=== PATIENT | male | born 1970 | race Caucasian/White ===

== ENCOUNTER 2025-08-12 09:04 | Outpatient (REF) | payer OTHER, SELFPAY ==
--- OUTSIDE RECORDS SUMMARY | 2025-08-12 09:46 | XMS_ITS | Clinical Summary ---
Author Organization [facility] Address [address] [place] [address] Phone Care Team Providers Care Nurses' Registry Director Name Role Phone Neville Merida NP Primary Care Provider [phone] Allergies Active Allergy Reactions Criticality Noted Date Comments Bee Venom Protein (Honey Bee) 2020 Medications methocarbamoL (ROBAXIN) 750 mg tablet Take 1 tablet (750 mg total) by mouth 4 (four) times a day. 20 each 08/30/2024 Active Active Problems No known active problems Encounters Date Type Department Care Team Description 06/02/2025 2:46 PM EDT - 06/02/2025 11:59 PM EDT Hospital Encounter [facility] MRI [address] [place] [address] Pain in right wrist Discharge Disposition: Home or Self Care from Last 3 Months Medical History Medical History Date Comments Asthma Social History Tobacco Use Types Packs/Day Years Used Date Smoking Tobacco: Never Smokeless Tobacco: Never Tobacco Cessation:Counseling Given: Not Answered Alcohol Use Standard Drinks/Week Comments Not Currently 0 (1 standard drink = 0.6 oz pur e alcohol) Sex and Gender Information Value Date Recorded Sex Assigned at Male 08/30/2024 4:13 PM EST Legal Sex Male 10:11 AM EST Gender Identity Male 08/30/2024 4:13 PM EST Sexual Orientation Straight 08/30/2024 4: 13 PM EST Obstetrics History Last Filed Vital Signs Vital Sign Reading Time Taken Comments Blood Pressure 124/87 05/02/2025 11:54 AM EDT Pulse 87 05/02/2025 11:54 AM EDT Temperature 36.7 C (98 F) 05/02/2025 11:54 AM EDT Respiratory Rate 18 05/02/2025 11:54 AM EDT Oxygen Saturation 97% 05/02/2025 11:54 AM EDT Inhaled Oxygen Concentration - - Weight 117 kg (259 lb) 05/02/2025 11:51 AM EDT Height 175.3 cm (5' 9 ) 05/02/2025 11:51 AM EDT Body Mass Index 38.25 05/02/2025 11:51 AM EDT Plan of Treatment Health Maintenance Due Date Last Done Comments Colorectal Cancer Screening: Colonoscopy 1969 Hepatitis A Vaccines (1 of 2 - Risk 2-dose series) 1988 Pneumococcal Vaccine: 50+ Years (1 of 1 - PCV) 2019 RSV Immunization Adult Patients (1 - Risk 50-74 years 1-dose series) 2019 Social Influencers of Health Screening 09/10/2022 Hepatitis B Vaccines (2 of 2 - CpG 2-dose series) 03/18/2024 02/19/2024 Zoster Vaccines (2 of 2) 04/15/2024 02/19/2024 Depression Screening 10/13/2024 COVID-19 Vaccine (3 - 2024-2 6 season) 2025 01/31/2021, 01/08/2021 Influenza Vaccine (#1) 2025 08/13/2022 Cholesterol Screening (Lipid Panel) 09/12/2027 09/12/2022, 09/12/2022, 05/18/2020 DTaP,Tdap,and Td Vaccines (2 - Td or Tdap) 07/11/2029 07/11/2019 HIV Screening Completed 05/18/2020 Hepatitis C Screening Completed 09/12/2022 HIB Vaccines Aged Out No longer eligi ble based on patient's age to complete this topic HPV Vaccines Aged Out No longer eligi ble based on patient's age to complete this topic IPV Vaccines Aged Out No longer eligi ble based on patient's age to complete this topic MMR Vaccines Aged Out No longer eligi ble based on patient's age to complete this topic Meningococcal ACWY Vaccine Aged Out N o longer eligible based on patient's age to complete this topic Meningococcal B Vaccine Aged Out No l onger eligible based on patient's age to complete this topic RSV Immunization Patients Under 20 months Aged Out No longer eligible b ased on patient's age to complete this topic Varicella Vaccines Aged Out No longer eligible based on patient's age to complete this topic Procedures Procedure Name Priority Date/Time Associated Diagnosis Comments MR WRIST WO AND W CONTRAST RIGHT Routine 06/02/2025 4:06 PM EDT Pain in right wrist from Last 3 Months Results * MR Wrist wo and w Contrast Right (06/02/2025 4:06 PM EDT) Anatomical Region Laterality Modality Upper Extremities, Wrist Right Magneti c Resonance 06/05/2025 7:49 AM EDT Impressions 06/05/2025 8:00 AM EDT 1. Constellation of findings which can be seen with hamatolunate impingement 2. Extensor carpi ulnaris tendinosis -------- FINAL REPORT -------- Dictated By: Denice Garcia Dictated Date: 06/05/2025 07:49 ET Assigned Physician: Denice Garcia Reviewed and Electronically Signed By: Denice Garcia Signed Date: 06/05/2025 08:00 ET Workstation ID: [id number] Transcribed By: Self Edit Transcribed Date: 06/05/2025 07:49 ET Narrative 06/05/2025 8:00 AM EDT INDICATION: Right wrist pain. Limited range of motion. COMPARISON: Correlation is made with right wrist radiographs dated 04/2025 TECHNIQUE: Multiplanar, multisequence MRI examination was performed of the RIGHT wrist without and after the uneventful intravenous contrast administration of 20 mL Dotarem. FINDINGS: Bone/cartilage: No acute fracture or dislocation. Cystic change/bone marrow edema involving the tip of the hamate. Nonspecific cystic change involving the lunate, triquetrum and capitate. Type II lunate. Mild negative ulnar variance. 6 Triangular fibrocartilage:Intact Ligaments:The scapholunate and lunotriquetral ligaments are intact. Tendons: Extensor carpi ulnaris tendinosis. Flexor and remainder of the extensor tendons are normal in position, signal and configuration. Carpal tunnel:Normal. Median nerve position, signal and morphology are normal. Guyon's Canal:Normal. Ulnar nerve position, signal and morphology are normal. Miscellaneous:Right wrist joint fluid. After intravenous contrast administration, no enhancing mass or lesion is identified. Procedure Note Denice Garcia MD - 06/05/2025 INDICATION: Right wrist pain. Limited range of motion. COMPARISON: Correlation is made with right wrist radiographs date TECHNIQUE: Multiplanar, multisequence MRI examination was performed ofthe RIGHT wrist without and after the uneventful intravenous contrastadministration of 20 mL Dotarem. FINDINGS: Bone/cartilage: No acute fracture or dislocation. Cystic change/bonemarrow edema involving the tip of the hamate. Nonspecific cystic changeinvolving the lunate, triquetrum and capitate. Type II lunate. Mildnegative ulnar variance. 6 Triangular fibrocartilage:Intact Ligaments:The scapholunate and lunotriquetral ligaments are intact. Tendons: Extensor carpi ulnaris tendinosis. Flexor and remainder of theextensor tendons are normal in position, signal and configuration. Carpal tunnel:Normal. Median nerve position, signal and morphology arenormal. Guyon's Canal:Normal. Ulnar nerve position, signal and morphology arenormal. Miscellaneous:Right wrist joint fluid. After intravenous contrastadministration, no enhancing mass or lesion is identified. IMPRESSION: 1. Constellation of findings which can be seen with hamatolunateimpingement 2. Extensor carpi ulnaris tendinosis -------- FINAL REPORT -------- Dictated By: Denice Garcia Dictated Date: 06/05/2025 07:49 ET Assigned Physician: Denice Garcia Reviewed and Electronically Signed By: Denice Garcia Signed Date: 06/05/2025 08:00 ET Workstation ID: [id number] Transcribed By: Self Edit Transcribed Date: 06/05/2025 07:49 ET Neville Merida NP IMG MRI PROCEDURES Final R esult from Last 3 Months Insurance MEDICAID - [place] Care Teams Nurses' Registry Director Relationship Specialty Start Date End Date Neville Merida NP [address] [place] [address] PCP - General 06/21/24
== END 2025-08-12 09:05 | disposition home or self-care (01) ==
LOC: HO.HOSX 09:04
DX: Z13.89 Encounter for screening for other disorder (principal)